=== PATIENT | male | born 1960 | race Hispanic/Latino ===

== ENCOUNTER 2017-11-14 13:06 | Outpatient (CLI) | payer MEDICARE, OTHER ==
--- NOTE | 2017-11-14 16:45 | Cat Scan Report ---
FINAL REPORT EXAM: CT LUMBAR SPINE WO CON HISTORY: LUMBOSACRAL SPONDYLOSIS WITH RADICULOPATHY TECHNIQUE: Spiral high-resolution unenhanced 1.25 millimeter axial images were obtained through the lumbar spine. Sagittal and coronal plane are reconstructions were performed. PRIORS: None. FINDINGS: Counting reference: Lumbosacral junction. For the purposes of this report, L4-L5 is considered the level of the iliac crest. Bone marrow/ Fracture: No evidence for acute or chronic fracture is seen. No evidence of a lytic or blastic process in the visualized spine. Bilateral facet joint degenerative changes are present at all levels, most marked at L3-L4 and L4-L5 Alignment: Alignment is anatomic. No evidence for spondylolisthesis is seen. T12-L1: Canal and foramina are patent. L1-L2: Canal and foramina are patent. L2-L3: Canal and foramina are patent. L3-L4: There is a moderate posterior disc bulge with significant bilateral neural foraminal narrowing, worse on the left. L4-L5: There is a moderate posterior disc bulge causing mild bilateral neural foraminal narrowing, worse on the left. L5-S1: There is a mild posterior disc bulge. Paraspinal soft tissues: The paraspinal soft tissues show no evidence for paravertebral hematoma or soft tissue mass. Sacrum and iliac wings: Visualized portions of the sacrum and iliac wings appear intact without fracture. The presacral soft tissues are normal in appearance. Incidental There is a 2.3 x 2.6 cm hypodense nodule in the left adrenal gland, likely a benign entity such as an adenoma. Nodularity of the apex of the right adrenal gland is also noted without a discrete nodule identified. IMPRESSION: 1. No evidence of acute fracture. 2. Moderate posterior disc bulges at L3-L4 and L4-L5. This causes bilateral neural foraminal narrowing, worse on the left at both levels. 3. Bilateral facet joint degenerative changes most marked at L3-L4 and L4-L5 4. Incidental hypodense left adrenal nodule, likely a benign entity. Nodularity apex of the right adrenal gland is also noted without a discrete nodule.
--- NOTE | 2017-11-14 16:55 | Cat Scan Report ---
FINAL REPORT EXAM: CT CERVICAL SPINE WO CON HISTORY: CERVICAL SPONDYLOSIS WITH RADICULOPATHY TECHNIQUE: Standard CT cervical spine obtained at 2.5 millimeter axial increments. Coronal and sagittal reconstruction was also performed. PRIORS: None. FINDINGS: There is been previous fusion of the vertebral bodies at C4-C5 and C6-C7. Plate and screw devices are present anteriorly at C3-C4 and C5-C6. Bilateral stimulator leads are in place within the spinal canal posteriorly terminating at approximately the C2 level to the right of midline. There is posterior spurring at C4-C5 and C5-C6. There is moderate neural foraminal narrowing at C7-T1 to the left. The vertebral bodies are otherwise intact. There is no evidence for acute fracture. There is no evidence for paravertebral soft tissue swelling. The cervical alignment is straightened, however, this is probably due to a combination of surgery and degenerative change.. IMPRESSION: No acute abnormality of the cervical spine. Multilevel surgical findings and evidence for fusion of the vertebral bodies from C4 through C7 as noted.
== END 2017-11-14 13:07 | disposition home or self-care (01) ==
LOC: CT 13:06
DX: M47.27 Other spondylosis with radiculopathy, lumbosacral region (principal); M47.22 Other spondylosis with radiculopathy, cervical region; M51.16 Intervertebral disc disorders with radiculopathy, lumbar region; E27.8 Other specified disorders of adrenal gland
CPT/HCPCS: 72125; 72131